=== PATIENT | female | born 1980 | race Two or more races ===

== ENCOUNTER 2022-09-22 09:18 | Outpatient (CLI) | payer OTHER | END 2022-09-22 09:20 | disposition home or self-care (01) | LOC: SONOGRAMA 09:18 | PROVIDERS: ATTEND Pathology Anatomic Pathology & Clinical Pathology | DX: E04.1 Nontoxic single thyroid nodule (principal); C53.8 Malignant neoplasm of overlapping sites of cervix uteri ==

== ENCOUNTER 2022-12-18 08:18 | Outpatient (CLI) | payer OTHER | END 2022-12-18 08:20 | disposition home or self-care (01) | LOC: SONOGRAMA 08:18 | PROVIDERS: ATTEND Pathology Anatomic Pathology & Clinical Pathology | DX: D44.0 Neoplasm of uncertain behavior of thyroid gland (principal); E07.9 Disorder of thyroid, unspecified; E04.1 Nontoxic single thyroid nodule ==